=== PATIENT | male | born 1975 | race American Indian/Alaskan Native ===

== ENCOUNTER 2020-08-11 09:27 | Outpatient (CLI) | payer OTHER ==
[~2020-08-11 09:27] MED LIST: CELEBREX100 MG PO; SKELAXIN800 MG PO; ULTRACET PO
== END 2020-08-11 09:42 | disposition home or self-care (01) ==
LOC: RAD 09:27
PROVIDERS: ATTEND Internal Medicine Pulmonary Disease
DX: J45.41 Moderate persistent asthma with (acute) exacerbation (principal)

== ENCOUNTER 2024-06-20 08:27 | Day surgery (SDC) | payer OTHER ==
[2024-06-14 12:01] VITALS: BP 127/84
[2024-06-14 12:20] LABS: BASO % 0.8 % (0.1-1.2); EOS # 0.31 (0.04-0.54); HEMATOCRIT 45.5 % (40.1-51.0); HEMOGLOBIN 15.7 g/dL (13.7-17.5); LYMPH % 28.8 % (19.3-53.1); MEAN CORPUSCULAR HEMOGLOBIN 29.2 pg (25.6-32.2); MONO # 0.45 (0.24-0.82); MONO % 8.6 % (4.7-12.5); NEUT % 55.6 % (34.0-71.1); PLATELET COUNT 157 K/uL (163-369); RED BLOOD COUNT 5.37 M/uL (4.63-6.08); RED CELL DISTRIBUTION WIDTH 12.6 % (11.6-14.4)
[2024-06-14 12:22] LABS: PH,URINE 7.5 (5.0-8.0); URINE APPEARANCE Clear; URINE BILIRRUBIN Negative (NEGATIVE); URINE BLOOD Negative; URINE COLOR Yellow; URINE GLUCOSE Negative (NEGATIVE); URINE KETONE Negative (NEGATIVE); URINE LEUKOCYTE Negative; URINE NITRATE Negative; URINE PROTEIN Negative (NEGATIVE); URINE UROBILINOGEN 0.2 E.U./dl
[2024-06-14 12:23] LABS: URINE RBC 7.3 uL (0.0-20.8)
[2024-06-14 12:31] LABS: URINE BACTERIA 0 uL (0.0-1933); URINE EPITHELIAL CELLS 0.1 uL (0.0-38.8); URINE WBC 0.9 uL (0.0-23.2)
[2024-06-14 13:03] LABS: INR 1.07; PARTIAL THROMBOPLASTIN TIME 30.6 SECONDS (22.0-34.0); PROTHROMBIN TIME 11.6 SECONDS (9.0-11.5)
[2024-06-14 13:57] LABS: ALBUMIN 4.2 gm/dL (3.4-5.0); BILIRUBIN TOTAL 0.54 mg/dL (0.3-1.2); CALCIUM 9.1 mg/dL (8.5-10.1); CREATININE SERUM 1.13 mg/dL (0.70-1.30); GFR 68.69; POTASSIUM 4.51 mEq/L (3.5-5.1); TOTAL PROTEIN 8.2 gm/dL (6.4-8.2)
[~2024-06-20] VITALS: Ht 172.7 cm; Wt 68.0 kg
[~2024-06-20 08:27] MED LIST changes: +ASACOL; +SYMBICORT 16010.2 GM
[2024-06-20] MEDS ORDERED: HEMOSTATIC MATRIX 1 KIT KIT TOP ONE (10:27)
[2024-06-20] MEDS ORDERED: DIBUCAINE 30 GM TUBE ONE (10:27)
[2024-06-20] MEDS ORDERED: LIDOCAINE HCL 1%/EPINEPHRINE 20ML VIAL IJ ONE (10:28)
[2024-06-20] MEDS ORDERED: POVIDONE-IODINE 118 ML BOTT TOP ONE (10:28)
[2024-06-20] MEDS ORDERED: BUPIVACAINE HCL/Mpf 0.5% 10ML VIAL ONE (10:28)
[2024-06-20] MEDS ORDERED: PERCOCET 5-3251 EACH PO (11:23)
[2024-06-20] MEDS ORDERED: RECTICARE30 GM TOP (11:23)
== END 2024-06-20 17:50 | disposition home or self-care (01) ==
LOC: CIR.AMB 08:27
PROVIDERS: ATTEND Surgery
DX: K60.1 Chronic anal fissure (principal); K60.311 Anal fistula, simple, initial; K62.5 Hemorrhage of anus and rectum; K62.4 Stenosis of anus and rectum